=== PATIENT | female | born 1960 | race Caucasian/White ===

== ENCOUNTER 2022-05-11 09:49 | Day surgery (SDC) | payer OTHER ==
[~2022-05-11] VITALS: Ht 157.5 cm; Wt 76.2 kg
[2022-05-11] MEDS ORDERED: BUPIVACAINE /PF 0.25% 30 ML VIAL INJ ONE (11:46)
[2022-05-11] MEDS ORDERED: KETOROLAC TROMETHAMINE 30 MG VIAL IVP ONE (11:46)
[2022-05-11] MEDS ORDERED: LR 1,000 ML IV.SOLN IV ONE (11:46)
[2022-05-11] MEDS ORDERED: NS IRRIG SOLN 1000 ML IR ONE (11:46)
[2022-05-11] MEDS ORDERED: fentaNYL CITRATE 250 MCG/5 ML AMP IV ONE (11:46)
[2022-05-11] MEDS ORDERED: LIDOCAINE 1% 10 MG/ML, 20 ML MDV INJ ONE (11:46)
[2022-05-11] MEDS ORDERED: PROPOFOL 200MG/ 20ML VIAL (DIPRIVAN) IV ONE (11:46)
[2022-05-11] MEDS ORDERED: ONDANSETRON HCL 4 MG/2 ML VIAL IVP ONE (11:46)
[2022-05-11] MEDS ORDERED: MIDAZOLAM HCL 5 MG/5 ML VIAL IVP ONE (11:46)
[2022-05-11] MEDS ORDERED: DESFLURANE 15 MIN GAS INH ONE (11:46)
[2022-05-11] MEDS ORDERED: DEXAMETHASONE SOD PHOSPHATE 4 MG/ML VIAL IVP ONE (11:46)
[2022-05-11] MEDS ORDERED: SUGAMMADEX SODIUM 200 MG/2 ML VIAL IV ONE (11:46)
[2022-05-11] MEDS ORDERED: ROCURONIUM BROMIDE 10 MG/ML (ZEMURON) IV ONE (11:46)
[2022-05-11] MEDS ORDERED: METOCLOPRAMIDE HCL 10 MG/2 ML VIAL IVP PRN (12:45)
[2022-05-11] MEDS ORDERED: MIDAZOLAM HCL 2 MG/2 ML VIAL (VERSED) IVP PRN (12:45)
[2022-05-11] MEDS ORDERED: LR 1,000 ML IV SCH (12:45)
[2022-05-11] MEDS ORDERED: MEPERIDINE HCL/PF 25 MG/ML DISP.SYRIN IVP PRN (12:45)
[2022-05-11] MEDS ORDERED: HYDROmorphone 1 MG/ML INJ. CARTRIDGE IVP PRN ×2 (12:45)
[2022-05-11] MEDS ORDERED: ACETAMINOPHEN I.V. 1000 MG 100 ML IV ONE (13:13)
[2022-05-11] MEDS ORDERED: HYDROmorphone 1 MG/ML INJ. CARTRIDGE ONE (15:07)
[2022-05-11 17:30] VITALS: BP_SYST 130
== END 2022-05-11 17:28 | disposition home or self-care (01) ==
LOC: SDS 09:49 → SMU 09:50 → SDS 17:28
PROVIDERS: ATTEND Student in an Organized Health Care Education/Training Program
DX: S52.021A Displaced fracture of olecranon process without intraarticular extension of right ulna, initial encounter for closed fracture (principal); S52.101A Unspecified fracture of upper end of right radius, initial encounter for closed fracture; X58.XXXA Exposure to other specified factors, initial encounter; Y93.89 Activity, other specified; Y92.89 Other specified places as the place of occurrence of the external cause; Y99.8 Other external cause status
CPT/HCPCS: 36415 ×2; 24366; 64415; 24685; 76000; 76942; 88305; 88311; 87426; U0003; C1713 ×6; J3490 ×2; J1100; J1885; J2001; J2250; J2405; J2704; J3010; J1170; J7120; A4565; J0131; C1769; C1776 ×2